=== PATIENT | female | born 1985 | race Caucasian/White ===

== ENCOUNTER 2024-08-17 11:32 | Emergency (ER) | payer OTHER ==
[~2024-08-17] VITALS: Ht 167.6 cm; Wt 112.5 kg
[2024-08-17] MEDS ORDERED: LIDOCAINE HCL 1% 20 ML VIAL ONE (12:34)
[2024-08-17] MEDS: LIDOCAINE HCL 1% 20 ML VIAL IJ ONE (12:43)
[2024-08-17] MEDS ORDERED: NEOMY/BACITRA/POLYMYXIN B OINT UD PACKET TP ONE (12:59)
[2024-08-17] MEDS ORDERED: HYDR-3972 PO (12:59)
[2024-08-17] MEDS ORDERED: SULF1TAB48 PO (12:59)
[2024-08-17] MEDS ORDERED: SULFAMETH/TRIMETH 800/160 MG TABLET ONE (13:00)
[2024-08-17] MEDS ORDERED: HYDROCODONE/APAP 5-325MG TABLET ONE (13:00)
[2024-08-17] MEDS: SULFAMETH/TRIMETH 800/160 MG TABLET PO ONE (13:07)
[2024-08-17] MEDS: NEOMY/BACITRA/POLYMYXIN B OINT UD PACKET TP ONE (13:07)
[2024-08-17] MEDS: HYDROCODONE/APAP 5-325MG TABLET PO ONE (13:07)
[2024-08-17 13:11] VITALS: BP 128/60; TEMP 97.9; O2SAT 97
== END 2024-08-17 13:12 | disposition home or self-care (01) ==
LOC: ER 11:32
DX: L02.212 Cutaneous abscess of back [any part, except buttock and flank] (principal); Z88.7 Allergy status to serum and vaccine; Z98.84 Bariatric surgery status
CPT/HCPCS: 99284; 10061; J3490; A4606; A4663

== ENCOUNTER 2024-08-19 10:08 | Emergency (ER) | payer OTHER ==
[~2024-08-19] VITALS: Ht 167.6 cm; Wt 111.1 kg
[~2024-08-19 10:08] MED LIST: HYDR-3972 PO; SULF1TAB48 PO
[2024-08-19] MEDS ORDERED: NEOMY/BACITRA/POLYMYXIN B OINT UD PACKET TP ONE (11:01)
[2024-08-19 11:34] VITALS: BP 119/70; O2SAT 99
== END 2024-08-19 11:11 | disposition home or self-care (01) ==
LOC: ER 10:08
DX: Z48.817 Encounter for surgical aftercare following surgery on the skin and subcutaneous tissue (principal); Z88.7 Allergy status to serum and vaccine; Z98.84 Bariatric surgery status
CPT/HCPCS: A4606; A4663

== ENCOUNTER 2024-08-21 12:57 | Emergency (ER) | payer OTHER ==
[~2024-08-21] VITALS: Ht 167.6 cm; Wt 112.5 kg
[2024-08-21] MEDS ORDERED: LIDOCAINE 2%-EPI 1:100,000 20 ML VIAL ONE (12:59)
[2024-08-21] MEDS ORDERED: NEOMY/BACITRA/POLYMYXIN B OINT UD PACKET TP ONE ×2 (13:42→13:48)
[2024-08-21] MEDS: NEOMY/BACITRA/POLYMYXIN B OINT UD PACKET TP ONE (14:00)
[2024-08-21 14:20] VITALS: BP 129/68; TEMP 97.9; O2SAT 100
== END 2024-08-21 14:08 | disposition home or self-care (01) ==
LOC: ER 12:57
DX: Z48.00 Encounter for change or removal of nonsurgical wound dressing (principal); Z88.7 Allergy status to serum and vaccine; Z98.84 Bariatric surgery status
CPT/HCPCS: A4606; A4663